=== PATIENT | male | born 1995 | race African-American/Black ===

== ENCOUNTER 2019-08-02 22:11 | Emergency (ER) | payer SELFPAY ==
[2019-08-02] MEDS ORDERED: Ketorolac Tromethamine 30 MG/ML VIAL ONE (23:32)
== END 2019-08-03 00:15 | disposition home or self-care (01) ==
LOC: ERS 22:11
DX: S16.1XXA Strain of muscle, fascia and tendon at neck level, initial encounter (principal); M54.5 Low back pain; F17.210 Nicotine dependence, cigarettes, uncomplicated; F41.9 Anxiety disorder, unspecified; F32.9 Major depressive disorder, single episode, unspecified; V47.5XXA Car driver injured in collision with fixed or stationary object in traffic accident, initial encounter
CPT/HCPCS: 96372; 99283; J1885; L0120

== ENCOUNTER 2022-12-08 17:30 | Emergency (ER) | payer SELFPAY | END 2022-12-08 19:06 | disposition home or self-care (01) | LOC: ERS 17:30 | DX: L02.414 Cutaneous abscess of left upper limb (principal); F17.210 Nicotine dependence, cigarettes, uncomplicated | CPT/HCPCS: 99282 ==